=== PATIENT | female | born 1950 | race Caucasian/White ===

== ENCOUNTER 2023-04-14 15:20 | Emergency (ER) | payer MEDICARE, SELFPAY ==
[2023-04-14] VITALS (13 sets, daily range): BP systolic 159–201; BP diastolic 71–90; PULSE 103–112; RESP 12–20; TEMP 37.1; O2SAT 94–98; BMI 29.0
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
[2023-04-14 16:26] LABS: Albumin* 4.3 g/dL (3.3-5.0); Chloride* 102 mmol/L (96-114)
[2023-04-14 16:27] LABS: Potassium* 3.4 mmol/L (3.6-5.1); Sodium* 138 mmol/L (135-149)
[2023-04-14 16:29] LABS: Anion Gap 13 mEq/L (7-15); Aspartate Amino Transferase* 38 U/L (12-35); Bilirubin Total* 0.5 mg/dL (0.1-1.5); Carbon Dioxide* 23 mmol/L (20-32); Creatinine* 0.6 mg/dL (0.5-1.5); Est. Creatinine Clearance* 50.18; Estimated Glomerular Filt Rate 96 ml/min; Total Protein* 7.4 g/dL (6.0-8.3)
[2023-04-14 16:30] LABS: Alanine Aminotransferase* 23 U/L (4-35); Alkaline Phosphatase* 85 U/L (40-150); Blood Urea Nitrogen* 18 mg/dL (7-30); Calcium* 9.2 mg/dL (8.4-10.6); Glucose* 257 mg/dL (60-115)
[2023-04-14 17:10] LABS: Basophils Percent Auto 0.4 % (0.0-3.0); Eosinophils Percent Auto 1.1 % (0.0-7.0); Hematocrit 39.7 % (33.0-51.0); Immature Granulocytes Pct Auto 0.4 %; Lymphocytes Percent Auto 8.2 % (20-44); Mean Corpuscular HGB Conc 33 gm/dL (32-36); Mean Corpuscular Hemoglobin 29 pg (26-34); Mean Corpuscular Volume 88 fL (80-100); Monocytes Percent Auto 5.1 % (0.0-11.0); Neutrophils Percent Auto 84.8 % (42.0-72.0); Platelet Count* 292 K/uL (140-440); RDW Coefficient of Variation % 14.8 % (11.5-15.5); Red Blood Count 4.53 m/uL (4.00-5.20); White Blood Count* 12.97 K/uL (4.50-11.00)
[2023-04-14 17:13] LABS: Slide Review Reflex No
[2023-04-14 17:57] LABS: Troponin, Point-of-Care* 0.01 ng/ml (0.01-0.04)
== END 2023-04-14 18:13 | disposition home or self-care (01) ==
PROVIDERS: Student in an Organized Health Care Education/Training Program; Emergency Provider Emergency Medicine; PCP Family Medicine
DX: M25.561 Pain in right knee (principal); V43.62XA Car passenger injured in collision with other type car in traffic accident, initial encounter
CPT/HCPCS: 36415; 70450; 72125; 73562; 80048; 80053; 84484; 85025; 93005; 96374; 99283; 99284; 99285; 99291; G0390